=== PATIENT | female | born 1940 | race Caucasian/White ===

== ENCOUNTER 2016-12-31 03:41 | Emergency (ER) | payer MEDICARE, OTHER ==
[~2016-12-31] VITALS: Ht 165.1 cm; Wt 74.5 kg
[2016-12-31 03:46] VITALS: BP 170/81; PULSE 98; RESP 15; TEMP 98.6; O2SAT 98
[2016-12-31 04:11] VITALS: BP 123/58; PULSE 96; RESP 18; O2SAT 95
[2016-12-31] MEDS ORDERED: ORPHENADRINE INJ 60 MG/2 ML AMP IM ONE (04:45)
--- NOTE | 2016-12-31 04:47 | PD ---
HPI Chief Complaint: Back/ Neck Pain or Injury Time Seen by Provider: 04:47 Travel History International Travel<30 days: No Contact w/Intl Traveler<30days: No Traveled to known affect area: No History of Present Illness HPI 76-year-old female with history of hypertension, diabetes, presents to the emergency department for evaluation of neck pain 1 month. Patient recalls no injury. States that has been intermittent, she felt like maybe she slept on it incorrectly, but the pain has gotten worse. It does not radiate anywhere. She rates it a 6 out of 10. Denies focal deficit or weakness. Denies a chest x- ray otitis. No difficulty breathing. Pain is exacerbated with movement. No other symptoms to report. PFSH Past Medical History High Cholesterol: Yes Diabetes: Yes Patient Takes Glucophage: No Diminished Hearing: No Hypertension: Yes Tetanus Vaccination: Unknown Past Surgical History Abdominal Surgery: Yes (Hernia) Cholecystectomy: Yes Ear Surgery: Yes (Bilateral eyes) Social History Alcohol Use: No Tobacco Use: No Substance Use: No Allergies-Medications (Allergen,Severity, Reaction): Coded Allergies: adhesive (Verified Allergy, Mild, Rash, 12/31/16) Reported Meds & Prescriptions Reported Meds & Active Scripts Active Robaxin (Methocarbamol) 500 Mg Tab 500 Mg PO QID PRN Review of Systems Except as stated in HPI: all other systems reviewed are Neg Physical Exam Narrative GENERAL: Well-nourished elderly female patient, sitting in bed in no acute distress SKIN: Focused skin assessment warm/dry. HEAD: Atraumatic. Normocephalic. EYES: Pupils equal and round. No scleral icterus. No injection or drainage. ENT: No nasal bleeding or discharge. Mucous membranes pink and moist. NECK: Trachea midline. No JVD. An assault with palpation along the trapezius musculature, greater on the right than the left. No cervical spine tenderness. However patient does report pain with movement of her neck. CARDIOVASCULAR: Regular rate and rhythm. No murmur appreciated. RESPIRATORY: No accessory muscle use. Clear to auscultation. Breath sounds equal bilaterally. GASTROINTESTINAL: Abdomen soft, non-tender, nondistended. Hepatic and splenic margins not palpable. MUSCULOSKELETAL: No obvious deformities. No clubbing. No cyanosis. No edema. NEUROLOGICAL: Awake and alert. No obvious cranial nerve deficits. Motor grossly within normal limits. Normal speech. PSYCHIATRIC: Appropriate mood and affect; insight and judgment normal. Data Data Last Documented VS Vital Signs Date Time Temp Pulse Resp B/P (MAP) Pulse Ox O2 Delivery O2 Flow Rate FiO2 12/31/16 04:11 96 18 123/58 (79) 95 Room Air 12/31/16 03:[address] Cerv Spine W/O Contrast (12/31/16 ) Orphenadrine Inj (Norflex Inj) (12/31/16 04:45) MDM Medical Decision Making Medical Screen Exam Complete: Yes Emergency Medical Condition: Yes Medical Record Reviewed: Yes Differential Diagnosis Cervical strain versus discogenic pain versus radiculopathy versus fracture Narrative Course 76 year-old female presents to emergency department for evaluation neck pain. Patient appears without distress. She has no focal deficits or weakness. Based on her age, I feel it is necessary to evaluate for possible fracture, despite no injury. She is treated for pain. 0600 CT results no acute bony normality. There are degenerative changes. Results are discussed with the patient. She'll be discharged home with additional pain control. She is encouraged to follow-up with a primary care provider and return immediately with any acute worsening of symptoms. Diagnosis Primary Impression: Neck pain Referrals: Primary Care Physician Patient Instructions: Cervical Neck Strain Exercises (GEN), General Instructions Additional Instructions: Ice and/or warm moist heat may help alleviate symptoms Follow-up with the primary care provider Return immediately with any acute worsening of symptoms Med/Other Pt SpecificInfo: Prescription(s) given Scripts Methocarbamol (Robaxin) 500 Mg Tab 500 MG PO QID Y for MUSCLE SPASM, #20 TAB 0 Refills Prov: Bernie Tracy 12/31/16 Disposition: 01 DISCHARGE HOME Condition: Stable Bernie Tracy Dec 31, 2016 04:47
--- NOTE | 2016-12-31 05:57 | RADRPT ---
EXAM DATE/TIME: 12/31/2016 05:23 [facility] COMPARISON: No previous studies available for comparison. INDICATIONS : Neck pain. RADIATION DOSE: 25.67 CTDIvol (mGy) MEDICAL HISTORY : Hypertension. Diabetes mellitus type 2. SURGICAL HISTORY : Cholecystectomy. Inguinal hernia repair. ENCOUNTER: Initial ACUITY: 1 day PAIN SCALE: 10/10 LOCATION: neck TECHNIQUE: Volumetric scanning of the cervical spine was performed. Multiplanar reconstructions in the sagittal, coronal and oblique axial planes were performed. Using automated exposure control and adjustment o f the mA and/or kV according to patient size, radiation dose was kept as low as reasonably achievable to obtain optimal diagnostic quality images. DICOM format image data is available electronically f or review and comparison. FINDINGS: VERTEBRAE: Normal vertebral body height. ALIGNMENT: Mild degenerative anterolisthesis of C6 on C7. C2-C3: The bony spinal canal is normal in size. No evidence of disc bulge or herniation. The neural forami na are bilaterally patent. C3-C4: The bony spinal canal is normal in size. No evidence of disc bulge or herniation. The neural forami na are bilaterally patent. C4-C5: The bony spinal canal is normal in size. No evidence of disc bulge or herniation. The neural forami na are bilaterally patent. C5-C6: The bony spinal canal is normal in size. No evidence of disc bulge or herniation. The neural forami na are bilaterally patent. C6-C7: The bony spinal canal is normal in size. No evidence of disc bulge or herniation. The neural forami na are bilaterally patent. C7-T1: The bony spinal canal is normal in size. No evidence of disc bulge or herniation. The neural forami na are bilaterally patent. CONCLUSION: 1. No acute findings. Moderate degenerative disc disease and facet arthropathy. Minimal degenerative anterolisthesis of C6 on C7. Solomon Oh MD on December 31, 2016 at 5:53 Board Certified Radiologist. This report was verified electronically.
[2016-12-31] MEDS ORDERED: ROBA500T PO (06:01)
== END 2016-12-31 06:11 | disposition home or self-care (01) ==
LOC: NEPE 03:41
DX: M54.2 Cervicalgia (principal); I10 Essential (primary) hypertension; E11.9 Type 2 diabetes mellitus without complications; E78.00 Pure hypercholesterolemia, unspecified
CPT/HCPCS: 72125; 96372; 99285; J2360